=== PATIENT | female | born 1970 | race Caucasian/White ===

== ENCOUNTER 2023-05-06 16:00 | Emergency (ER) | payer OTHER ==
--- NOTE | 2023-05-06 16:27 | ED ---
General Adult HPI - General Chief complaint: Shortness of Breath Stated complaint: cough fever and sore throat Time Seen by Provider: 05/06/23 16:15 Source: family, RN notes reviewed Mode of arrival: ambulatory Limitations: no limitations - History of Present Illness Initial comments: 53-year-old female presents to the Emergency department with aunt for chief complaint of cough, congestion, fever 2 days. They are concerned that they have covid and would like to be tested. Others in the household have similar symptoms. She also admits to headache and generalized muscle aches. - Related Data Previous Rx's Medication Instructions Recorded Molnupiravir [Molnupiravir (Eua)] 800 mg PO BID #40 cap 05/06/23 Allergies Allergy/AdvReac Type Severity Reaction Status Date / Time No Known Allergies Allergy Verified 05/06/23 16:15 Review of Systems ROS Statement: Those systems with pertinent positive or pertinent negative responses have been documented in the HPI. ROS Other: All systems not noted in ROS Statement are negative. Past Medical History Additional Past Medical History / Comment(s): Mentally Challenged Past Surgical History: No Surgical Hx Reported Past Psychological History: No Psychological Hx Reported Smoking Status: Never smoker Past Alcohol Use History: None Reported Past Drug Use History: None Reported General Exam - General Exam Comments Initial Comments: Visual Physical Exam Vital signs reviewed General: Well-appearing, nontoxic, no acute distress. Head: Normocephalic, atraumatic Eyes: PERRLA, EOMI ENT: Airway patent Chest: Nonlabored breathing Skin: No visual rash, normal skin tone Neuro: Alert and oriented 3 Musculoskeletal: No gross abnormalities Limitations: no limitations General appearance: alert, in no apparent distress Head exam: Present: atraumatic, normocephalic, normal inspection Eye exam: Present: normal appearance, PERRL, EOMI. Absent: scleral icterus, conjunctival injection, periorbital swelling ENT exam: Present: normal exam, mucous membranes moist Neck exam: Present: normal inspection. Absent: tenderness, meningismus, lymphadenopathy Respiratory exam: Present: normal lung sounds bilaterally. Absent: respiratory distress, wheezes, rales, rhonchi, stridor Cardiovascular Exam: Present: regular rate, normal rhythm, normal heart sounds. Absent: systolic murmur, diastolic murmur, rubs, gallop, clicks GI/Abdominal exam: Present: soft, normal bowel sounds. Absent: distended, tenderness, guarding, rebound, rigid Extremities exam: Present: normal inspection, full ROM, normal capillary refill. Absent: tenderness, pedal edema, joint swelling, calf tenderness Neurological exam: Present: alert Psychiatric exam: Present: normal affect, normal mood Skin exam: Present: warm, dry, intact, normal color. Absent: rash Course Vital Signs 05/06/23 05/06/23 16:11 19:59 Temperature 99.0 F 99.2 F Pulse Rate 88 90 Respiratory 18 16 Rate Blood Pressure 117/80 120/82 O2 Sat by Pulse 94 L Oximetry Medical Decision Making - Medical Decision Making I preformed the quick note portion of this chart. Electronically signed by EDEN Calderon-CWas pt. sent in by a medical professional or institution ([facility] [address], HIGH SCHOOL ADMISSIONS REPRESENTATIVE, urgent care, hospital, or fdc...) When possible be specific @ -No Did you speak to anyone other than the patient for history (EMS, parent, family, police, friend...)? What history was obtained from this source @ -No Did you review nursing and triage notes (agree or disagree)? Why? @ -I reviewed and agree with nursing and triage notes Were old charts reviewed (outside hosp., previous admission, EMS record, old EKG, old radiological studies, urgent care reports/EKG's, fdc records)? Report findings @ -No old charts were reviewed Differential Diagnosis (chest pain, altered mental status, abdominal pain women, abdominal pain men, vaginal bleeding, weakness, fever, dyspnea, syncope, headache, dizziness, GI bleed, back pain, seizure, CVA, palpatations, mental health, musculoskeletal)? @ -Covid, influenza, RSV, viral URI, gastritis, this list is not all-inclusive EKG interpreted by me (3pts min.). @ -none X-rays interpreted by me (1pt min.). @ -Chest X-ray obtained shows no evidence of acute process CT interpreted by me (1pt min.). @ -None done U/S interpreted by me (1pt. min.). @ -None done What testing was considered but not performed or refused? (CT, X-rays, U/S, labs)? Why? @ -None What meds were considered but not given or refused? Why? @ -None Did you discuss the management of the patient with other professionals (professionals i.e. Dr., PA, HIGH SCHOOL ADMISSIONS REPRESENTATIVE, lab, RT, psych nurse, social work supervisor, instructional design consultant, teacher, defence force senior officer, showcase trimmer)? Give summary @ -No Was smoking cessation discussed for >3mins.? @ -No Was critical care preformed (if so, how long)? @ -No Were there social determinants of health that impacted care today? How? (Homelessness, low income, unemployed, alcoholism, drug addiction, transportation, low edu. Level, literacy, decrease access to med. care, snf, rehab)? @ -No Was there de-escalation of care discussed even if they declined (Discuss DNR or withdrawal of care, Hospice)? DNR status @ -No What co-morbidities impacted this encounter? (DM, HTN, Smoking, COPD, CAD, Cancer, CVA, ARF, Chemo, Hep., AIDS, mental health diagnosis, sleep apnea, morb id obesity)? @ -None Was patient admitted / discharged? Hospital course, mention meds given and route, prescriptions, significant lab abnormalities, going to OR and other pertinent info. @ -Discharged. Patient presented to emergency department chief complaint of cough, congestion, fever 2 days. Chest x-ray obtained which shows no evidence acute process. Covid test positive. Influenza, RSV negative. Patient and guardian advised on these findings. Patient will be treated with antiviral medication at the request of the guardian. I rechecked the patient's SpO2 which was 99% on room air. Patient is breathing without any difficulty. Patient will be discharged home with antiviral medication and symptomatic treatment. Discharged in stable condition. Case discussed with Dr. Yuen.] Undiagnosed new problem with uncertain prognosis? @ -No Drug Therapy requiring intensive monitoring for toxicity (Heparin, Nitro, Insulin, Cardizem)? @ -No Were any procedures done? @ -No Diagnosis/symptom? @ -COVID-19 Acute, or Chronic, or Acute on Chronic? @ -Acute Uncomplicated (without systemic symptoms) or Complicated (systemic symptoms)? @ -Uncomplicated Side effects of treatment? @ -No Exacerbation, Progression, or Severe Exacerbation? @ -No Poses a threat to life or bodily function? How? (Chest pain, [place], [place], pneumonia, PE, COPD, DKA, ARF, appy, cholecystitis, CVA, Diverticulitis, Homicidal, Suicidal, threat to staff... and all critical care pts) @ -No - Lab Data Lab Results 05/06/23 Range/Units 18:03 Influenza Type A (PCR) Not Detected (Not Detectd) Influenza Type B (PCR) Not Detected (Not Detectd) RSV (PCR) Not Detected (Not Detectd) SARS-CoV-2 (PCR) Detected A (Not Detectd) Disposition Clinical Impression: COVID-19 Disposition: HOME SELF-CARE Condition: Stable Instructions (If sedation given, give patient instructions): COVID-19 (Coronavirus Disease 2019) (ED) Additional Instructions: Please follow up with your primary care provider. Return to the emergency department for new or worsening symptoms. Prescriptions: Molnupiravir [Molnupiravir (Eua)] 800 mg PO BID #40 cap Is patient prescribed a controlled substance at d/c from ED?: No Referrals: Carol Silva MD [Primary Care Provider] - 1-2 days
[2023-05-06 20:09] VITALS: BP 120/82; PULSE 90; RESP 16; TEMP 99.2
--- NOTE | 2023-05-06 20:47 | XR ---
EXAMINATION TYPE: XR chest 2V DATE OF EXAM: 05/06/2023 COMPARISON: Chest x-ray January 08, 2015 HISTORY: Cough and fever. TECHNIQUE: Frontal and lateral views of the chest are obtained. FINDINGS: There is no suspicious new focal air space opacity, pleural effusion, or pneumothorax seen . The cardiac silhouette size is stable and within normal limits. The osseous structures are intac t. IMPRESSION: No acute pulmonary infiltrate. No significant change from prior.
== END 2023-05-06 20:11 | disposition home or self-care (01) ==
LOC: EC 16:00 → EEVIPCON 16:00 → EC 20:11
DX: U07.1 COVID-19 (principal)
CPT/HCPCS: 71046; 87636; 99285